=== PATIENT | male | born 1950 | race Caucasian/White ===

== ENCOUNTER 2017-05-30 07:19 | Inpatient (IN) ==
[2017-05-30] MEDS ORDERED: Lidocaine -MPF 1% 2 ML VIAL ID ONE (07:42)
[2017-05-30] MEDS ORDERED: CeFAZolin Syr 2,000MG/20 ML 2,000 MG/20 ML SYRINGE IVPB ONE (07:42)
[2017-05-30] MEDS ORDERED: Vancomycin 1,500 MG in D5% in Water 250 ML IVPB ONE ×3 (07:42→20:00)
[2017-05-30] MEDS ORDERED: Albuterol 2.5 MG/3 ML NEBULIZER ONE (07:46)
[2017-05-30] MEDS ORDERED: *HR* HYDROmorphone (PF) 1 MG/ML SYRINGE IVP PRN (07:50)
[2017-05-30] MEDS ORDERED: Famotidine 20 MG/2 ML VIAL IVP ONE (07:50)
[2017-05-30] MEDS ORDERED: *HR* Promethazine 25 MG/ML VIAL IVP PRN (07:50)
[2017-05-30] MEDS ORDERED: *HR* Labetalol 20 MG/4 ML SYRINGE IVP PRN ×3 (07:50→13:53)
[2017-05-30] MEDS ORDERED: Acetaminophen IV 1,000 MG/100 ML INFUS..BTL IVPB ONE (07:53)
[2017-05-30] MEDS: Ringers Solution, Lactated 1,000 ML IVC SCH ×2 (07:55→13:02)
[2017-05-30] MEDS: Albuterol 2.5 MG/3 ML NEBULIZER IH ONE ×2 (07:56→15:37)
--- NOTE | 2017-05-30 07:56 | Anesthesia Evaluation PreOp ---
Date of Encounter: 05/30/17 Time of Encounter: 07:54 - Past History Planned Operation: LLE graft thrombectomy Cardiac History: HTN (maintained on Lisinopril, Hctz), Hyperlipidemia ( maintained on Crestor), Other (PVDz s/p R-BKA, Fem-Pop Bypass now with popliteal graft occlusion. Maintained on Plavix, Pentoxifylline. 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: Other (Peripheral Neuropathy maintained on Amitryptyline) Other Medical History: Renal, Diabetes Type II (maintained on Metformin), GERD ( maitnained on Omeprazole) Anesthesia History: No Prior Anesthetic Complications, Past Anesthesia (R-elbow , L-knee Fx, L-ankle ORIF, C-spine 2004, R-shoulder 2006, lower extremity Bypass x2 last in , RLE amputation, L-eye implant 02/2016) Alcohol Use: none Drug use: none Medications and Allergies Amitriptyline [Elavil] 75 mg PO HS 05/12/15 [History] Clopidogrel [Plavix] 75 mg PO DAILY 05/12/15 [History] Cyanocobalamin (Vitamin B-12) [Vitamin B12] 1,000 mcg PO DAILY 05/12/15 [History ] Hydrochlorothiazide 25 mg PO DAILY 05/12/15 [History] Lisinopril [Zestril] 40 mg PO DAILY 05/12/15 [History] Omeprazole [PriLOSEC] 20 mg PO DAILY 05/12/15 [History] Rosuvastatin [Crestor] 40 mg PO HS 05/12/15 [History] Pentoxifylline [TRENtal] 400 mg PO BID #0 06/26/15 [History] Metformin HCl [Glucophage] 1,000 mg PO BID #0 08/06/15 [Rx] 3 Allergy/AdvReac Type Severity Reaction Status Date / Time No Known Allergies Allergy Verified 05/30/17 07:57 - Meds/Allergy Pre-op Review Medications Reviewed: Yes Allergies Reviewed: Yes Beta Blockers on Current Med List: No Anesthesia Results - Labs Laboratory Tests 05/09/17 05/28/17 05/28/17 13:12 12:35 12:35 WBC 6.4 Hgb 12.7 L Hct 38.2 Plt Count 242 PT 11.5 INR 1.1 APTT 27.1 Sodium Potassium Chloride Carbon Dioxide BUN Creatinine POC Creatinine 1.00 Est GFR (Non-Af Amer) Glucose Est Mean Plasma Glucose Hemoglobin A1c 05/28/17 05/28/17 12:35 12:35 WBC Hgb Hct Plt Count PT INR APTT Sodium 138 Potassium 4.3 Chloride 104 Carbon Dioxide 24 BUN 18 Creatinine 0.92 POC Creatinine Est GFR (Non-Af Amer) > 60 Glucose 130 H Est Mean Plasma Glucose 134 Hemoglobin A1c 6.3 H Anesthesia Exam O2 Sat Height 1.78 m Height 1.78 m Weight 96.615 kg Weight 96.615 kg O2 Sat by Pulse Oximetry 98 Vital Signs Temp Pulse Resp BP Pulse Ox 97.9 F 109 18 127/100 98 05/30/17 07:38 05/30/17 07:38 05/30/17 07:38 05/30/17 07:38 05/30/17 07:38 Height: 5'10" Weight: 213# BMI = 30.6 NPO (# of Hours): MNOc - HEENT Pupil (Motor): Pupils equal, EOMI Mallampati: II Teeth: Edentulous Denture Type: Upper: Complete, Lower: Complete Oral Opening: Greater than 3 - NOUGAT CUTTER MACHINE LOC: Oriented NOUGAT CUTTER MACHINE Motor: Normal RUE, Normal LUE, Normal RLE, Normal LLE, Normal Face NOUGAT CUTTER MACHINE Sensory: Normal: RUE, LUE, RLE, LLE, Face - Cardiac Rhythm: Regular Murmur: None - Pulmonary Breath Sounds: bilateral Clear Respiratory Effort: Symmetrical Anesthesia Assess/Plan ASA Score: 3 (HTN, Chol, PVDz, DM) Anes Supervising Prov Stmt: Pt seen/evaluated, R&B discussed, questions answered and consent obtained. Ashkan Cooley MD
[2017-05-30] MEDS ORDERED: Levalbuterol Neb 1.25 MG/3 ML IH ONE (08:00)
[2017-05-30] MEDS ORDERED: Gabapentin 300 MG CAPSULE PO STA (08:13)
[2017-05-30] MEDS ORDERED: Heparin 1,000 UNITS/500 mL NS 500 ML ONE (08:42)
--- NOTE | 2017-05-30 08:51 | History & Physical Report ---
Date of Encounter: 05/30/17 Time of Encounter: 08:48 24 Hour HP Update - Instructions Instructions: If the History and Physical is less than 30 days old and was completed prior to A.M. admission and or procedure and has NOT been updated on calendar day of procedure please complete this update prior to performing procedure. - Update Patient reports changes in Medical Condition: No Changes in examination, assessment, or condition: No Changes in Medication: No Preop tests/diagnostics Reviewed: Yes Surgery Remains Indicated: Yes Consent for Planned Operative Procedure(s) Verified: Yes - Pre-Operative Checklist Preoperative Checklist Indicated: Yes Prophylactic Antibiotic Ordered: Yes (Vanomycin due to risk of MRSA) Home Medications Include Beta Margarita: No Beta Margarita Taken Today (Day of Surgery): No Beta Margarita Taken Yesterday (Day Prior to Surgery): No Is VTE Prophylaxis Indicated?: Yes
[2017-05-30] MEDS ORDERED: Heparin 1,000 UNITS/500 mL NS 1,500 ML ONE (09:01)
[2017-05-30] MEDS ORDERED: Lidocaine -MPF 2% 2 ML VIAL ONE ×2 (09:10→09:25)
[2017-05-30] MEDS ORDERED: *HR* Rocuronium Bromide 50 MG/5 ML VIAL ONE (09:12)
[2017-05-30] MEDS ORDERED: EPHEDrine 50 MG/ML VIAL ONE (09:12)
[2017-05-30] MEDS ORDERED: *HR* Succinylcholine 200 MG/10 ML VIAL IVP ONE (09:12)
[2017-05-30] MEDS ORDERED: *HR* FentaNYL (PF) 100 MCG/2 ML VIAL ONE ×2 (09:12→10:09)
[2017-05-30] MEDS ORDERED: Propofol 500 MG/50 ML INFUS..BTL ONE (09:13)
[2017-05-30] MEDS ORDERED: *HR* Heparin 5,000 UNIT/ML VIAL ONE (10:37)
[2017-05-30] MEDS ORDERED: *HR* Phenylephrine 10 MG/ML VIAL ONE (10:42)
[2017-05-30] MEDS ORDERED: *HR* Vasopressin 20 UNIT/ML VIAL ONE (10:49)
[2017-05-30] MEDS ORDERED: Albumin Human 5% 25.0 GM/500 ML VIAL ONE (10:49)
--- NOTE | 2017-05-30 11:40 | Operative Note ---
Date of procedure: 05/30/17 Pre-op diagnosis: Peripheral vascular disease with rest pain, acute on chronic limb ischemia Post-op diagnosis: same Procedure: 1. Left femoral to popliteal artery bypass graft thrombectomy with hemashield patch revision of the proximal graft. 2. Left common and deep femoral endarterectomy. Complications: None Anesthesia: YANCI Surgeon: Parag Fair Estimated blood loss (cc): 100 Specimen: Left lower extremity thrombus and plaque Condition: stable Disposition: PACU Procedure in Detail: Indications: The patient is a 67 year old male with a long history of hypertension, diabetes, chronic anemia, hyperlipidemia and peripheral vascular disease. The patient has previously undergone a right below knee amputation for severe peripheral vascular disease. The patient has previously undergone a left femoral to popliteal artery bypass and presented to clinic with complaints of left lower extremity claudication. He was found to have an occluded left femoral to popliteal artery bypass. During the course of his workup, he developed progressive rest pain and revascualrization was recommended to reduce his risk of limb loss. Procedure: The patient was identified in the preoperative area. The risks, benefits and alternatives were discussed and all questions were answered. The patient was taken to the operating room and placed in the supine position on the operating room table. After the induction of general endotracheal anesthesia, the patient was cleaned and draped in the normal sterile fashion. An oblique incision was made sharply through his previous left groin scar overlying the femoral vessels. Hemostasis was obtained with electrocautery. Through a process of blunt, sharp and electrocautery dissection, the distal external iliac, deep and superficial femoral arteries were dissected and surrounded with vessel loops. The graft was also dissected and surrounded with vessel loops. The patient received a 5000 unit bolus of heparin. After waiting adequate time or the heparin to circulate, the vessels were occluded with the vessel loops. A longitudinal arteriotomy was made through the graft anastamosis and extended proximally into the [place] artery. No flow was noted on release of the loops. A 4 mongolian mihaela catheter was passed into the aorta and inflated. It was withdrawn and some acute thrombus and chronic embolic material was retrieved. This was sent to pathology. Brisk pulsatile flow was noted at this time. Additional passes of the catheter resulted in no additional thrombus or embolus proximally. A 4 mongolian mihaela catheter was passed distally and thrombus was retrieved from the deep femoral artery. Minimal retrograde flow was then noted from the deep femoral artery. A 4 mongolian mihaela catheter was passed distally through the graft and into the distal popliteal artery. Thrombus was retrieved on the first pass. Additional passes resulted in no additional thrombus. Retrograde flow as noted through the graft. The vessels and graft were flushed with heparin. Intimal hyperplasia was noted to be present along the anastamosis. Using a dental freer, an endarectomy was performed along the common femoral artery and extended into the deep femoral artery. Upon excision of the deep femoral plaque , brisk retrograde flow was noted through the deep femoral artery. The graft was also noted to be kinked along the anterior wall. This resulted in significant stenosis at the proximal graft. The graftotomy was extended through the kinke area and a hemasield patch was cut to fit the defect. The A hemashield patch was then sutured to the defect with a running 6-0 prolene. Prior to completing the closure, the vessels were flushed, the graft was flushed and heparin was infused into the lumen. Flow was restored in the [place] vessels and graft. Polyphasic signals were identified in the posterior tibial and dorsalis pedis arteries below the ankle. The wound was irrigated with antibiotic containing saline. Hemostasis was obtained with electrocautery. The wound was reapproximated with 2-0 and 3-0 vicryl. Skin was reapproximated with 3-0 Monocryl. Sterile dressings were applied. The patient was extubated and taken to the recover room in stable condition.
[2017-05-30] MEDS ORDERED: Ondansetron 4 MG/2 ML VIAL IVP PRN ×2 (11:41→13:53)
[2017-05-30] MEDS ORDERED: Acetaminophen 325 MG TABLET PO PRN ×2 (11:41→13:53)
[2017-05-30] MEDS ORDERED: *HR* OxyCODONE Immed Rel 5 MG TABLET PO PRN (11:41)
[2017-05-30] MEDS ORDERED: *HR* HYDROcodone/Acet 5/325 mg TABLET PO PRN ×2 (11:41→13:53)
[2017-05-30] MEDS ORDERED: *HR* Morphine 2 MG/ML SYRINGE IVP PRN ×2 (11:41→13:53)
[2017-05-30] MEDS ORDERED: Naloxone 0.4 MG/ML INJ IVP PRN ×2 (11:41→13:53)
[2017-05-30] MEDS ORDERED: *HR* Metoprolol 5 MG/5 ML VIAL IVP SCH (12:00)
[2017-05-30] MEDS ORDERED: Ketorolac 30 MG/ML VIAL ONE (12:42)
[2017-05-30] MEDS ORDERED: Ketorolac 30 MG/ML VIAL IM ONE (12:46)
--- NOTE | 2017-05-30 13:32 | Anesthesia Evaluation Post Op ---
Date of Encounter: 05/30/17 Time of Encounter: 13:31 - Vital Signs Vital Signs: Vital Signs/O2 Sat/Glucose, Most Current Temp Pulse Resp BP Pulse Ox 05/30/17 13:24 98.3 F 87 12 98 05/30/17 13:16 98.3 F 88 11 93/57 99 05/30/17 13:06 85 16 93/63 98 05/30/17 12:56 85 14 79/50 96 05/30/17 12:46 97.3 F L 71 14 76/48 99 05/30/17 12:36 67 16 95/53 97 05/30/17 12:26 69 16 78/52 98 05/30/17 12:16 97.5 F L 76 16 100/56 96 05/30/17 12:06 84 14 113/61 95 05/30/17 11:56 85 12 113/77 98 05/30/17 11:46 97.0 F L 101 16 122/63 98 - Lungs Lungs: Clear Ascult./Percussion - Airway Airway: Non-obstructed - Cardiovascular Regular Rate - Mental Status Mental Status: Alert & Oriented, Answers Appropriately - Pain Pain Scale: 2 - Nausea Vomiting Nausea Vomiting: Not Present - Hydration Hydration: Tolerates oral liquids - Discharge PostOp Status: Transfer Patient to floor (good peripheral pulses, VSS, ok to transfer to floor)
[2017-05-30] MEDS ORDERED: *HR* Dextrose 50 % in Water (Syg) 50 ML SYRINGE IVP PRN (13:53)
[2017-05-30] MEDS ORDERED: D5% in Water 1,000 ML IVC PRN (13:53)
[2017-05-30] MEDS ORDERED: Dextrose Gel 15 GM PO PRN ×2 (13:53)
[2017-05-30] MEDS: *HR* OxyCODONE Immed Rel 5 MG TABLET PO PRN ×2 (14:39→20:33)
[2017-05-30] MEDS ORDERED: ceFAZolin 2,000 MG in D5% in Water 100 ML IVPB SCH (15:30)
[2017-05-30] MEDS: Insulin LISPRO 300 UNITS/3 ML VIAL SQ SCH (17:21)
[2017-05-30] MEDS: ceFAZolin 2,000 MG in D5% in Water 100 ML IVPB SCH (17:21)
[2017-05-30] MEDS: *HR* Metoprolol 5 MG/5 ML VIAL IVP SCH ×2 (17:21→23:40)
[2017-05-30] MEDS ORDERED: Insulin LISPRO 300 UNITS/3 ML VIAL SQ SCH (21:00)
[2017-05-31] MEDS: ceFAZolin 2,000 MG in D5% in Water 100 ML IVPB SCH (01:23)
[2017-05-31 03:51] LABS: Basophils % 0.5 %; Eosinophils # 0.2 K/mcL (0.0-0.6); Eosinophils % 2.9 %; Hematocrit 29.5 % (37.5-50.1); Immature Granulocytes % 0.4 % (0-4); Lymphocytes # 2.1 K/mcL (0.6-4.6); Lymphocytes % 25.3 %; Mean Corpuscular HGB Conc 33.9 g/dL (31.6-35.5); Mean Corpuscular Hemoglobin 29.3 pg (28.0-33.3); Mean Corpuscular Volume 86.5 fL (83.0-100.0); Mean Platelet Volume 10.4 fL (9.4-12.4); Monocytes # 0.7 K/mcL (0.0-1.3); Monocytes % 8.2 %; Neutrophils # 5.2 K/mcL (1.6-8.9); Platelet Count 182 K/mcL (140-400); Red Blood Count 3.41 M/mcL (4.19-5.50); Red Cell Distribution Width 13.4 % (11.5-14.5); Segmented Neutrophils % 62.7 %
[2017-05-31 04:12] LABS: BUN/Creatinine Ratio 11 (6-26); Blood Urea Nitrogen 11 mg/dL (8-26); Calcium 8.7 mg/dL (8.6-10.8); Carbon Dioxide 22 mEq/L (19-29); Chloride 103 mEq/L (98-109); Glucose 125 mg/dL (70-99); Osmolality,Calculated 283 (280-300); Sodium 136 mEq/L (136-145); eGFR For African Americans > 60 (> 60); eGFR For Non-African Americans > 60 (> 60)
[2017-05-31] MEDS ORDERED: *HR* Heparin 5,000 UNIT/ML VIAL SQ SCH ×2 (06:00)
[2017-05-31] MEDS: *HR* OxyCODONE Immed Rel 5 MG TABLET PO PRN (06:12)
[2017-05-31] MEDS: *HR* Metoprolol 5 MG/5 ML VIAL IVP SCH (06:13)
[2017-05-31 07:30] VITALS: BP 109/67
--- NOTE | 2017-05-31 07:37 | Discharge Summary ---
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 He is able to ambulate. His wounds are healing. He has palpable pedal pulses and his compartments are soft. He will be discharged today. (2) Essential (primary) hypertension Priority: Secondary Status: Chronic Comments: The patient was counseled regarding atherosclerotic risk factor reduction. (3) Mixed hyperlipidemia Priority: Secondary Status: Chronic (4) COPD (chronic obstructive pulmonary disease) Priority: Secondary Status: Chronic Qualifiers: COPD type: emphysema Emphysema type: panlobular Qualified Code(s): J43.1 - Panlobular emphysema (5) Diabetes mellitus Priority: Secondary Status: Chronic Qualifiers: Diabetes mellitus type: type 2 Diabetes mellitus complication status: with circulatory complication Diabetes mellitus complication detail: with peripheral angiopathy without gangrene Diabetes mellitus intermediate card tender insulin use : without intermediate card tender use Qualified Code(s): E11.51 - Type 2 diabetes mellitus with diabetic peripheral angiopathy without gangrene (6) Chronic anemia Priority: Secondary Status: Chronic Comments: The patient has chronic anemia with acute expected postoperative blood loss anemia. He is hemodynamically stable without evidence of ongoing blood loss. - Discharge Medications Prescriptions: OxyCODONE/APAP 5/325 [Percocet 5/325 MG] 1 each PO Q6HR PRN #25 tablet PRN Reason: POSTOPERATIVE PAIN Home Medications: Amitriptyline [Elavil] 75 mg PO HS 05/12/15 [History] Clopidogrel [Plavix] 75 mg PO DAILY 05/12/15 [History] Cyanocobalamin (Vitamin B-12) [Vitamin B12] 1,000 mcg PO DAILY 05/12/15 [History ] Hydrochlorothiazide 25 mg PO DAILY 05/12/15 [History] Lisinopril [Zestril] 40 mg PO DAILY 05/12/15 [History] Omeprazole [PriLOSEC] 20 mg PO DAILY 05/12/15 [History] Rosuvastatin [Crestor] 40 mg PO HS 05/12/15 [History] Pentoxifylline [TRENtal] 400 mg PO BID #0 06/26/15 [History] Metformin HCl [Glucophage] 1,000 mg PO BID #0 08/06/15 [Rx] OxyCODONE/APAP 5/325 [Percocet 5/325 MG] 1 each PO Q6HR PRN #25 tablet 05/31/17 [Rx] Allergies/Adverse Reactions: 3 Allergy/AdvReac Type Severity Reaction Status Date / Time No Known Allergies Allergy Verified 05/30/17 07:57 Date of admission: 05/30/17 13:46 Primary care physician: Demetrius Stewart MD Procedure(s) Performed: Left lower extremity thrombectomy with graft revision, left lower extremity endarterectomy. Discharging clinician: Parag Fair Anticipated date of discharge: 05/31/17 - Patient Status Disposition: Home, Self-Care Condition: Good Functional capacity at discharge: independent ambulation Overall status at discharge: patient is back to baseline - Discharge Instructions Instructions: Oxycodone/Acetaminophen (By mouth), Peripheral Vascular Disorders (DC) Follow Up With: Sylvia Brantley CNP [Advanced Practice Nurse] - 06/06/17 11:00 am Parag Fair MD [Partnered Physician] - 06/26/17 1:10 pm Additional Instructions: May remove bandage and shower 06/01/17. Wash wound gently and pat to dry. Apply dry gauze to wound daily for 7 days. No tub baths or swimming until 06/26/17. Call Dr. Fair at [phone] with questions or concerns. - Diet and Activity Activity: increase activity as tolerated Diet: advance to your usual diet - Hospital Course Hospital course: Mr. Ramirez is a 67 year old male with a history of hypertension, hyperlipidemia, COPD, diabetes, chronic anemia and severe peripheral vascular disease. He initially was found to have disabling claudication, but subsequently developed rest pain secondary to chronic peripheral vascular and acute limb ischemia due to a left femoral to popliteal artery bypass graft occlusion. The patient has already had a right below knee amputation. He was taken to the operating room on 05/30/17 where he underwent a left femoral to popliteal artery graft thrombectomy with revision as well as a left femoral endarterectomy. Postoperatively he was transeferred to the floor. He received intravenous perioperative beta blockers, intravenous perioperative antibiotics for prophylaxis. He received supplemental oxygen. He received subcutaneous heparin for anticoagulation. He required intravenous narcotics for pain relief overnight. His postoperative vascular status was assesed regularly to confrim graft patency. On postoperative day one the patient was noted to have a warm foot with palpable pedal pulses. His compartments were soft. He had no signs or symptoms of compartment syndrome. He has chronic anemia and his postoperative hemoglobin was stable. He remained hemodynamically stable without evidence of ongoing blood loss. On postoperative day one his pain was able to be controlled with oral analgesics. He was able to ambulate with his prosthesis. He was discharged in stable condition without complications. - Time Spent with Patient Total time spent providing and/or coordinating discharge services: Exam Vital Signs, Last 4 Hours Temp Pulse Resp BP Pulse Ox 05/31/17 07:28 98.4 F 87 16 109/67 94 General: Present: Conversant, No Apparent Distress HEENT: Present: Pupils equal Neck: Absent: JVD Cardiac: Present: Reg Rate and Rhythm, Normal S1 and S2 Lungs: Present: Normal Breath Sounds, No Wheeze, Rales, Rhonchi Neuro: Present: Alert and responsive, No focal deficits noted, Motor nerves grossly intact, Sensory nerves grossly intact Abdomen: Present: Soft, Non-tender Vascular: Present: Normal capillary refill, Pulse, normal, Surgical incisions ( clean and dry without hematoma). Absent: Cyanosis, Edema Skin: Present: No rashes noted on visualized skin Musculoskeletal: Present: No Chest Wall Tenderness - VTE Documentation of Mechanical Device: Intermittent pneumatic compression device
[2017-05-31] MEDS: Insulin LISPRO 300 UNITS/3 ML VIAL SQ SCH (07:46)
[2017-05-31] MEDS ORDERED: hydroCHLOROthiazide 25 MG TABLET PO SCH (09:00)
[2017-05-31] MEDS ORDERED: Lisinopril 20 MG TABLET PO SCH (09:00)
[2017-05-31] MEDS ORDERED: Cyanocobalamin (B-12) 1,000 MCG TABLET PO SCH (09:00)
[2017-06-01] MEDS ORDERED: *HR* Metformin 500 MG TABLET PO SCH (09:00)
== END 2017-05-31 10:08 | disposition home or self-care (01) | DRG 254 ==
LOC: SAMDAY 07:19 → 2NNU 13:46
PROVIDERS: ADMIT Surgery; ATTEND Surgery

== ENCOUNTER 2017-10-04 18:34 | Inpatient (IN) ==
[2017-10-04] MEDS: 0.9 % Sodium Chloride 1,000 ML IVC SCH (21:02)
[2017-10-04] MEDS ORDERED: Naloxone 0.4 MG/ML INJ IVP PRN (21:03)
[2017-10-04] MEDS ORDERED: Dextrose Gel 15 GM/37.5 ML TUBE PO PRN ×2 (21:05)
[2017-10-04] MEDS ORDERED: D5% in Water 1,000 ML IVC PRN (21:05)
[2017-10-04] MEDS ORDERED: *HR* Dextrose 50 % in Water (Syg) 50 ML SYRINGE IVP PRN (21:05)
--- NOTE | 2017-10-04 21:09 | Internal Med History&Physical ---
Date of Encounter: 10/04/17 Time of Encounter: 21:00 Assessment and Plan (1) Acute renal failure Current visit: Yes Status: Suspected Patient with acute renal failure. Creatinine normal at baseline. Currently 8.69. Likely prerenal due to dehydration and volume loss. We will treat with IV fluids. Follow renal function closely. High risk for complications. We will obtain renal ultrasound. Urinalysis. Consult nephrology if renal function does not improve. Qualifiers: Acute renal failure type: with acute tubular necrosis Qualified Code(s): N17.0 - Acute kidney failure with tubular necrosis (2) Gastroenteritis Current visit: Yes Status: Acute Most likely viral gastroenteritis. Treat symptomatically. IV hydration. Zofran for nausea and vomiting. (3) Diabetes mellitus Current visit: Yes Status: Chronic Monitor blood sugars closely. Diabetic diet. Sliding scale insulin coverage. Qualifiers: Diabetes mellitus type: type 2 Diabetes mellitus complication status: with circulatory complication Diabetes mellitus complication detail: with peripheral angiopathy without gangrene Diabetes mellitus [facility] insulin use : without terminal make up operator use Qualified Code(s): E11.51 - Type 2 diabetes mellitus with diabetic peripheral angiopathy without gangrene (4) Essential (primary) hypertension Current visit: Yes Status: Chronic Will hold lisinopril and hydrochlorothiazide due to acute kidney injury. Allow permissive hypertension for now. (5) Mixed hyperlipidemia Current visit: Yes Status: Chronic Continue Crestor. (6) Peripheral vascular disease with claudication Current visit: Yes Status: Chronic Continue Plavix and pentoxifylline. (7) DVT prophylaxis Current visit: Yes Status: Acute Continue heparin Internal Medicine - H&P: HPI Chief complaint: Diarrhea, nausea/ vomiting Admitted From: Emergency Dept Plans for Post Hospital Care: Home History of present illness: Mr. Ramirez is a 67 year old male patient with history of peripheral vascular disease, diabetes, hypertension who presented to the ER with complaints of nausea and vomiting and diarrhea. Ongoing since 1 week. No improvement in symptoms. Known sick contacts with similar complaints. Denies any abdominal pain. Has noticed decreased urine output. No dysuria or hematuria. No fever or chills or night sweats. No hematemesis, hematochezia or melena. Past Med Surg Social Fam HX - Past Medical History Attestation: Yes The following information was validated with the patient. Source: patient Medical history: COPD, diabetes, GERD, hyperlipidemia, hypertension, peripheral artery disease, renal disease Psychiatric history: no psych history - Past Surgical History Surgical History: LE Bypass, LE stent(s), orthopedic, other, vascular surgery - Social History Smoking Status: Former smoker Smokeless Tobacco Status: No Alcohol use: none Drug use: none - Family History Son Adopted: No Family Member Ethnicity: Non- Living Status: Still Living Hx Family Cardiac Disorders: No Hx Family Respiratory Disorders: No Hx Family Cancer: No Hx Family GI Disorders: No Hx Family Endocrine Disorder: No Hx Family Neuromuscular Disorders: No Hx Family Neurologic Disorders: No Hx Family HEENT Disorders: No Hx Family Autoimmune Disorders: No Father Adopted: No Family Member Ethnicity: Non- Living Status: Hx Family Cardiac Disorders: Yes Hx Family Respiratory Disorders: No Hx Family Cancer: Yes Hx Family GI Disorders: Yes Hx Family Endocrine Disorder: Yes Hx Family Neuromuscular Disorders: No Hx Family Neurologic Disorders: Yes Hx Family HEENT Disorders: No Hx Family Autoimmune Disorders: No Internal Medicine - H&P: Meds Amitriptyline [Elavil] 75 mg PO HS 05/12/15 [History] Clopidogrel [Plavix] 75 mg PO DAILY 05/12/15 [History] Cyanocobalamin (Vitamin B-12) [Vitamin B12] 1,000 mcg PO DAILY 05/12/15 [History ] Hydrochlorothiazide 25 mg PO DAILY 05/12/15 [History] Lisinopril [Zestril] 40 mg PO DAILY 05/12/15 [History] Omeprazole [PriLOSEC] 20 mg PO DAILY 05/12/15 [History] Rosuvastatin [Crestor] 40 mg PO HS 05/12/15 [History] Pentoxifylline [TRENtal] 400 mg PO BID #0 06/26/15 [History] Metformin HCl [Glucophage] 1,000 mg PO BID #0 08/06/15 [Rx] Tramadol HCl [Ultram] 50 mg PO QID PRN 10/04/17 [History] 3 Allergy/AdvReac Type Severity Reaction Status Date / Time No Known Allergies Allergy Verified 10/04/17 16:11 All Systems PM: A 10-system review of systems was performed and is negative for pertinent findings except as documented above in the HPI. - Constitutional Constitutional: no chills, no fever(s), no night sweats - EENT Eyes: no change in vision, no discharge, no pain, no photophobia Ears: no ear discharge, no ear pain, no tinnitus Nose, mouth and throat: no dysphagia, no nasal discharge, no neck pain, no sore throat - Cardiovascular Cardiovascular ROS IM: no chest pain, no diaphoresis, no dyspnea, no lightheadedness, no palpitations, no syncope - Respiratory Respiratory: no cough, no dyspnea, no wheezing, no excessive phlegm production - Gastrointestinal Gastrointestinal: diarrhea, nausea, vomiting, no abdominal pain, no hematemesis , no hematochezia, no melena - Musculoskeletal Musculoskeletal ROS IM: no numbness, no tingling - Integumentary Integumentary IM: no rash, no unusual bruising - Neurological Neurological ROS: no confusion, no convulsions, no focal weakness, no numbness, no tingling, no tremor(s) - Hematologic/Lymphatic Hematologic/Lymphatic: no easy bruising - Constitutional Vitals: Temp Pulse Resp BP Pulse Ox 97.5 F L 113 20 131/105 98 10/04/17 19:56 10/04/17 19:56 10/04/17 19:56 10/04/17 19:56 10/04/17 19:56 General appearance: Present: cooperative, mild distress, A&O X 3, pleasant, answers questions appropriately - Neck Neck exam general surgery: Present: supple, trachea midline. Absent: lymphadenopathy - Respiratory Respiratory exam: Present: CTAB. Absent: accessory muscle use, rales, rhonchi, wheezes - Cardiovascular Cardiovascular exam: Present: RRR, +S1, +S2. Absent: diastolic murmur, gallop, rubs, systolic murmur - GI/Abdominal GI/Abdominal exam: Present: normal bowel sounds, soft, no peritoneal signs. Absent: distended, tenderness - Extremities Exam Extremities exam: Present: warm, radial pulses palpable and symmetrical. Absent : calf tenderness, cyanotic, pedal edema - Neurological Exam Neurological exam: Present: alert, CN II-XII intact, oriented X3, no focal deficits. Absent: facial droop, speech deficit - Skin Skin exam: Present: dry, intact Internal Med - H&P Results - Labs Labs: WBC 14.4, sodium 131, CO2 13, BUN 103, creatinine 8.69
[2017-10-04] MEDS ORDERED: Ondansetron 4 MG/2 ML VIAL IVP PRN (21:15)
[2017-10-05] MEDS: traMADol 50 MG TABLET PO PRN ×3 (00:22→21:37)
[2017-10-05] MEDS: 0.9 % Sodium Chloride 1,000 ML IVC SCH ×3 (03:57→19:29)
[2017-10-05] MEDS: Melatonin 3 MG TABLET PO PRN ×2 (03:57→21:32)
[2017-10-05 04:07] LABS: Basophils % 0.2 %; Eosinophils % 16.3 %; Hematocrit 33.3 % (37.5-50.1); Hemoglobin 11.4 g/dL (12.9-16.9); Immature Granulocytes % 1.3 % (0-4); Lymphocytes # 2.2 K/mcL (0.6-4.6); Lymphocytes % 18.5 %; Mean Corpuscular HGB Conc 34.2 g/dL (31.6-35.5); Mean Corpuscular Volume 81.8 fL (83.0-100.0); Mean Platelet Volume 10.8 fL (9.4-12.4); Monocytes # 1.1 K/mcL (0.0-1.3); Monocytes % 9.3 %; Neutrophils # 6.6 K/mcL (1.6-8.9); Platelet Count 184 K/mcL (140-400); Red Blood Count 4.07 M/mcL (4.19-5.50); Red Cell Distribution Width 14.3 % (11.5-14.5); Segmented Neutrophils % 54.4 %
[2017-10-05 04:15] LABS: Calcium 7.2 mg/dL (8.6-10.3); Potassium 3.8 mEq/L (3.5-5.1)
[2017-10-05] MEDS: *HR* Heparin 5,000 UNIT/ML VIAL SQ SCH ×2 (05:16→18:37)
[2017-10-05] MEDS: Acetaminophen 325 MG TABLET PO PRN ×3 (05:21→21:32)
[2017-10-05 07:34] LABS: C.difficile Toxin A/B by PCR Not detected (Not detect); Campylobacter by PCR Not detected (Not detect); Plesiomonas shigelloides PCR Not detected (Not detect)
[2017-10-05 07:35] LABS: Adenovirus F 40/41 PCR Not detected (Not detect); Astrovirus PCR Not detected (Not detect); Cryptosporidium by PCR Not detected (Not detect); Cyclospora cayetanensis PCR Not detected (Not detect); E. coli O157 by PCR Not detected (Not detect); Entamoeba histolytica PCR Not detected (Not detect); Enteroaggregative E.coli(EAEC) Not detected (Not detect); Enteropathogenic E.coli(EPEC) Not detected (Not detect); Enterotoxigenic E.coli (ETEC) Not detected (Not detect); Giardia lamblia PCR Not detected (Not detect); Norovirus GI/GII PCR Not detected (Not detect); Rotavirus A PCR Not detected (Not detect); Salmonella PCR Not detected (Not detect); Sapovirus PCR Not detected (Not detect); Shig/EnteroinvasiveE coli EIEC Not detected (Not detect); Shigalike tox-prod E coli STEC Not detected (Not detect); Vibrio PCR Not detected (Not detect); Vibrio cholerae PCR Not detected (Not detect); Yersinia enterocolitica PCR Not detected (Not detect)
[2017-10-05] MEDS: Insulin LISPRO 300 UNITS/3 ML VIAL SQ SCH ×4 (08:15→21:33)
--- NOTE | 2017-10-05 17:17 | Internal Med Progress Note ---
<Mir Joiner - Last Filed: 10/05/17 18:12> Date of Encounter: 10/05/17 Time of Encounter: 17:15 - Assessment and plan (1) Acute renal failure Current Visit: Yes Status: Acute Assessment and plan: Cr improving 8.69 -> 6.71 IV fluid hydration - 150mls/hr maintenance Plan: Renal US pending Continue to monitor kidney function Continue 150mls/hr NS fluids Holding home lisinopril and HCTZ Qualifiers: Acute renal failure type: unspecified Qualified Code(s): N17.9 - Acute kidney failure, unspecified (2) Gastroenteritis Current Visit: Yes Status: Acute Assessment and plan: Hydration as stated above. Patient had one BM today that was soft and liquid. Improving. Stool GI panel negative (3) DVT prophylaxis Current Visit: Yes Status: Acute Assessment and plan: heparin 5000 BID - Subjective Interval history: Patient is a 67-year-old male with a past medical history of COPD, CVA, diabetes , GERD, HLD, HTN, PAD, renal disease admitted to the hospital for gastroenteritis, dehydration and near syncope. Patient was having episodes of nausea, vomiting, and diarrhea for the past week. Known sick contacts with similar complaints. The patient was found to be hypotensive and tachycardic in urgent care and referred to the emergency department. The patients initial lab work showed acute renal failure with creatinine of 8.69. The patient was hydrated and given when necessary Zofran. Patients lab work in the ED showed a unremarkable CBC. After receiving 2 L of IV fluids and being on 150 ML's per hour maintenance fluid the patient's creatinine has improved to 6.71. He states that he feels his diarrhea is improving his only had one episode today and it was somewhat soft. - Constitutional Vitals: Temp Pulse Resp BP Pulse Ox 97.9 F 115 19 106/59 97 10/05/17 16:23 10/05/17 16:23 10/05/17 16:23 10/05/17 16:23 10/05/17 16:23 General appearance: Present: cooperative, mild distress, A&O X 3, pleasant, answers questions appropriately - Head Head exam: Present: atraumatic, normal inspection, normocephalic - Eye Eye exam: Present: normal appearance, PERRL - Neck Neck exam general surgery: Present: normal inspection - Respiratory Respiratory exam: Present: CTAB. Absent: rales, respiratory distress, wheezes - Cardiovascular Cardiovascular exam: Present: RRR, +S1, +S2, tachycardia - GI/Abdominal GI/Abdominal exam: Present: normal bowel sounds, soft, no peritoneal signs. Absent: tenderness - Extremities Exam Extremities exam: Present: normal capillary refill, normal inspection, warm. Absent: tenderness Additional comments: Patient has BKA of RLE. - Back Exam Back exam: Present: normal inspection - Neurological Exam Neurological exam: Present: alert, oriented X3, no focal deficits - Psychiatric Psychiatric exam: Present: normal affect, normal mood - Skin Skin exam: Present: intact, normal color, warm Internal Medicine: Result - Labs CBC & Chem 7: 10/05/17 03:11 10/05/17 03:11 Labs: Short CBC 10/05/17 Range/Units 03:11 WBC 12.1 H (4.3-11.1) K/mcL Hgb 11.4 L (12.9-16.9) g/dL Hct 33.3 L (37.5-50.1) % Plt Count 184 (140-400) K/mcL Neutrophils # 6.6 (1.6-8.9) K/mcL BMP 10/05/17 03:11 Sodium 135 L Potassium 3.8 Chloride 107 Carbon Dioxide 12 L BUN 103 H Creatinine 6.71 H Glucose 78 Calcium 7.2 L Consult Discharge Plan - Plan Referrals: Demetrius Stewart MD [Primary Care Provider] - 10/11/17 11:30 am <Jeff Robertson - Last Filed: 10/05/17 19:06> Date of Encounter: 10/05/17 - Constitutional Vitals: Temp Pulse Resp BP Pulse Ox 97.9 F 115 19 106/59 97 10/05/17 16:23 10/05/17 16:23 10/05/17 16:23 10/05/17 16:23 10/05/17 16:23 Internal Medicine: Result - Labs CBC & Chem 7: 10/05/17 03:11 10/05/17 03:11 Labs: Short CBC 10/05/17 Range/Units 03:11 WBC 12.1 H (4.3-11.1) K/mcL Hgb 11.4 L (12.9-16.9) g/dL Hct 33.3 L (37.5-50.1) % Plt Count 184 (140-400) K/mcL Neutrophils # 6.6 (1.6-8.9) K/mcL BMP 10/05/17 03:11 Sodium 135 L Potassium 3.8 Chloride 107 Carbon Dioxide 12 L BUN 103 H Creatinine 6.71 H Glucose 78 Calcium 7.2 L - Impressions Impressions Retroperitoneum Ultrasound 10/05/17 15:30 IMPRESSION: Unremarkable renal ultrasound. Large postvoid residual. D/ / Jean-Claude Barreto MD / Jean-Claude Barreto MD Interpreting Provider: Jean-Claude Barreto MD - Attending Attestation I examined this patient and my medical decision-making was reviewed with the Resident Physician. I agree with the documented findings, disposition and treatment plan as described except to the extent set forth below.
[2017-10-06] MEDS: 0.9 % Sodium Chloride 1,000 ML IVC SCH ×4 (02:26→23:09)
[2017-10-06 03:52] LABS: Basophils % 0.5 %; Eosinophils # 1.5 K/mcL (0.0-0.6); Eosinophils % 17.2 %; Hematocrit 30.9 % (37.5-50.1); Hemoglobin 10.6 g/dL (12.9-16.9); Immature Granulocytes % 2.3 % (0-4); Lymphocytes # 2.2 K/mcL (0.6-4.6); Lymphocytes % 26.3 %; Mean Corpuscular HGB Conc 34.3 g/dL (31.6-35.5); Mean Corpuscular Hemoglobin 27.8 pg (28.0-33.3); Mean Corpuscular Volume 81.1 fL (83.0-100.0); Monocytes # 0.8 K/mcL (0.0-1.3); Monocytes % 9.7 %; Neutrophils # 3.7 K/mcL (1.6-8.9); Platelet Count 155 K/mcL (140-400); Red Blood Count 3.81 M/mcL (4.19-5.50); Red Cell Distribution Width 14.6 % (11.5-14.5)
[2017-10-06 04:08] LABS: Magnesium 1.2 mg/dL (1.6-2.6); Potassium 3.7 mEq/L (3.5-5.1)
[2017-10-06] MEDS: *HR* Heparin 5,000 UNIT/ML VIAL SQ SCH ×2 (06:27→17:09)
[2017-10-06] MEDS: Insulin LISPRO 300 UNITS/3 ML VIAL SQ SCH ×4 (08:25→21:43)
--- NOTE | 2017-10-06 08:54 | Discharge Summary ---
<Mir Joiner - Last Filed: 10/06/17 08:52> Orders not resulted at time of discharge: Pending orders 10/05/17 17:31 Urinalysis reflex Microscopic [URIN] Stat Urine Creatinine 24 Hr [UCHEM] Stat Urine Urea Nitrogen 24 Hr [UCHEM] Stat Date of Encounter: 10/06/17 Time of Encounter: 08:52 - Discharge Diagnosis (2) Acute renal failure Priority: Primary Status: Resolved Qualifiers: Acute renal failure type: unspecified Qualified Code(s): N17.9 - Acute kidney failure, unspecified (3) Gastroenteritis Priority: Primary Status: Resolved (4) DVT prophylaxis Priority: Secondary Status: Acute Hospital course: Mr. Ramirez is a 67 year old male with a past medical history of COPD, CVA, diabetes, GERD, HLD, HTN, PAD, renal disease admitted to the hospital for gastroenteritis, dehydration and near syncope. Patient was having episodes of nausea, vomiting, and diarrhea for the past week. Known sick contacts with similar complaints. The patient was found to be hypotensive and tachycardic in urgent care and referred to the emergency department. The patients initial lab work showed acute renal failure with creatinine of 8.69. The patient was hydrated and given when necessary Zofran. Patients lab work in the ED showed a unremarkable CBC. Upon admission, the patient was continued on 150 ML's per hour of normal saline. The patient had good urine output. Today his creatinine has improved to 2.60. Patient states that is feeling back to his baseline. He states that his last episode of diarrhea was yesterday morning. He has not had any nausea or vomiting and not required any anti-emetic the past 24 hours. He feels he is ready to go home at this time. Patient does have a borderline tachycardia however upon review of his past visits since 2014 this is a normal heart rate for this patient. Discharge discussed with: patient Time spent discussing smoking cessation with patient: 3 to 10 minutes - Time Spent with Patient Total time spent providing and/or coordinating discharge services: - Discharge Medications Home Medications: Amitriptyline [Elavil] 75 mg PO HS 05/12/15 [History] Clopidogrel [Plavix] 75 mg PO DAILY 05/12/15 [History] Cyanocobalamin (Vitamin B-12) [Vitamin B12] 1,000 mcg PO DAILY 10/14/15 [History ] Hydrochlorothiazide 25 mg PO DAILY 05/12/15 [History] Lisinopril [Zestril] 40 mg PO DAILY 05/12/15 [History] Omeprazole [PriLOSEC] 20 mg PO DAILY 05/12/15 [History] Rosuvastatin [Crestor] 40 mg PO HS 05/12/15 [History] Pentoxifylline [TRENtal] 400 mg PO BID #0 06/26/15 [History] Metformin HCl [Glucophage] 1,000 mg PO BID #0 08/06/15 [Rx] Tramadol HCl [Ultram] 50 mg PO QID PRN 10/04/17 [History] Tizanidine HCl 4 mg PO TID PRN 10/05/17 [History] Allergies/Adverse Reactions: 3 Allergy/AdvReac Type Severity Reaction Status Date / Time No Known Allergies Allergy Verified 10/04/17 16:11 Date of admission: 10/04/17 21:03 Primary care physician: Demetrius Stewart MD Discharging clinician: Jeff Robertson Anticipated date of discharge: 10/06/17 - Constitutional Vitals: Temp Pulse Resp BP Pulse Ox 97.6 F 105 15 123/81 92 10/06/17 07:43 10/06/17 08:25 10/06/17 07:43 10/06/17 07:43 10/06/17 07:43 General appearance: Present: cooperative, mild distress, A&O X 3, pleasant, answers questions appropriately Exam: Patient is in no acute distress sitting up in bed eating his breakfast. - Head Head exam: Present: atraumatic, normal inspection, normocephalic - Eye Eye exam: Present: normal appearance, PERRL - Neck Neck exam general surgery: Present: normal inspection - Respiratory Respiratory exam: Present: CTAB. Absent: rales, respiratory distress, rhonchi, tachypnea - Cardiovascular Cardiovascular exam: Present: +S1, +S2, tachycardia - GI/Abdominal GI/Abdominal exam: Present: normal bowel sounds, soft, no peritoneal signs - Extremities Exam Extremities exam: Present: normal inspection, warm. 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 - Back Exam Back exam: Present: normal inspection - Neurological Exam Neurological exam: Present: alert, oriented X3, no focal deficits - Psychiatric Psychiatric exam: Present: normal affect, normal mood - Skin Skin exam: Present: intact, normal color, warm - Patient Status Disposition: Home, Self-Care Condition: Good Functional capacity at discharge: independent ambulation Overall status at discharge: patient is back to baseline - Discharge Instructions Follow Up With: Demetrius Stewart MD [Primary Care Provider] - 10/11/17 11:30 am Additional Instructions: 1. Please follow up your primary care physician, Dr. Stewart on 10/11/17 at 11 AM. 2. If at any time you experience any worsening or concerning symptoms such as fever, headache, nausea, vomiting, chest pain, shortness of breath, abdominal pain, diarrhea or any other concerning symptoms return to the nearest emergency department for further evaluation and treatment. - Diet and Activity Activity: resume usual activities as tolerated Diet: advance to your usual diet <Jeff Robertson - Last Filed: 10/06/17 17:35> Orders not resulted at time of discharge: Pending orders 10/06/17 10:52 EKG [ECG 12 lead ECG] [ECG] Stat 10/06/17 12:19 EV echocardiogram Routine 10/07/17 04:00 BMP [Basic Metabolic Panel] AM 0400 Complete Blood Count [HEME] AM 0400 Date of Encounter: 10/06/17 Hospital course: Mr. Ramirez is a 67 year old male - Time Spent with Patient Total time spent providing and/or coordinating discharge services: Date of admission: 10/04/17 21:03 Primary care physician: Demetrius Stewart MD Consults: 10/06/17 10:51 Consult to Cardiology [CONS] Routine Comment: Consulting Provider: Cardiology Geeta Reason for Consult: 4 Seconds complete heart block Call Completed: Yes - Constitutional Vitals: Temp Pulse Resp BP Pulse Ox 97.9 F 90 18 108/63 97 10/06/17 15:30 10/06/17 15:30 10/06/17 15:30 10/06/17 15:30 10/06/17 15:30 - Attending Attestation I examined this patient and my medical decision-making was reviewed with the Resident Physician. I agree with the documented findings, disposition and treatment plan as described except to the extent set forth below. Will observe 24 more hrs. at Card. request given 4 second pauses..hope to DC tomorrow.
--- NOTE | 2017-10-06 12:14 | Electrophysiology Consult Note ---
Date of Encounter: 10/06/17 Time of Encounter: 12:11 Assessment and Plan (1) AV block, 2nd degree Current Visit: Yes Status: Acute AV block likely secondary to vagal stimulation or sleep apnea based on finding of sinus slowing prior to and during AV block. Would assess for sleep apnea and check echo. Discussion w patient/family: The assessment and plan as outlined above was discussed with the patient and/or family members who expressed understanding and agreement. All questions were answered. Thank you for involving us in the care of your patient. Please call with any questions. History of Present Illness Consult date: 10/06/17 Requesting physician: Jeff Roberston Consult reason: AV block Chief complaint: Headache History of present illness: Mr. Ramirez is a 67 year old male admitted for gastroenteritis and ARF. He was noted to have bradycardia and pauses noted on tele this AM. He denies symptoms and believes he was asleep during the episode. He denies syncope or other cardiac complaint. Past Med Surg Social Fam HX - Past Medical History Medical history: COPD, diabetes, GERD, hyperlipidemia, hypertension, peripheral artery disease, renal disease Psychiatric history: no psych history - Past Surgical History Surgical History: LE Bypass, LE stent(s), orthopedic, other, vascular surgery - Social History Smoking Status: Former smoker Smokeless Tobacco Status: No Alcohol use: none Drug use: none - Family History Son Adopted: No Family Member Ethnicity: Non- Living Status: Still Living Hx Family Cardiac Disorders: No Hx Family Respiratory Disorders: No Hx Family Cancer: No Hx Family GI Disorders: No Hx Family Endocrine Disorder: No Hx Family Neuromuscular Disorders: No Hx Family Neurologic Disorders: No Hx Family HEENT Disorders: No Hx Family Autoimmune Disorders: No Father Adopted: No Family Member Ethnicity: Non- Living Status: Hx Family Cardiac Disorders: Yes Hx Family Respiratory Disorders: No Hx Family Cancer: Yes Hx Family GI Disorders: Yes Hx Family Endocrine Disorder: Yes Hx Family Neuromuscular Disorders: No Hx Family Neurologic Disorders: Yes Hx Family HEENT Disorders: No Hx Family Autoimmune Disorders: No Medications and Allergies Amitriptyline [Elavil] 75 mg PO HS 05/12/15 [History] Clopidogrel [Plavix] 75 mg PO DAILY 05/12/15 [History] Cyanocobalamin (Vitamin B-12) [Vitamin B12] 1,000 mcg PO DAILY 10/14/15 [History ] Hydrochlorothiazide 25 mg PO DAILY 05/12/15 [History] Lisinopril [Zestril] 40 mg PO DAILY 05/12/15 [History] Omeprazole [PriLOSEC] 20 mg PO DAILY 05/12/15 [History] Rosuvastatin [Crestor] 40 mg PO HS 05/12/15 [History] Pentoxifylline [TRENtal] 400 mg PO BID #0 06/26/15 [History] Metformin HCl [Glucophage] 1,000 mg PO BID #0 08/06/15 [Rx] Tramadol HCl [Ultram] 50 mg PO QID PRN 10/04/17 [History] Tizanidine HCl 4 mg PO TID PRN 10/05/17 [History] 3 Allergy/AdvReac Type Severity Reaction Status Date / Time No Known Allergies Allergy Verified 10/04/17 16:11 All Systems Review: The remainder of the systems were reviewed and are negative Physical Examination Vital Signs, Last 4 Hours Pulse 10/06/17 08:25 105 General: Conversant, No Apparent Distress HEENT: Atraumatic, Normocephaly, Mucus Membranes Moist Neck: No JVD, Normal carotid pulses Cardiac: Reg Rate and Rhythm, Normal S1 and S2, No Murmur Lungs: Normal Breath Sounds, No Wheeze, Rales, Rhonchi Neuro: Alert and responsive, No focal deficits noted Abdomen: Soft, Non-Tender Skin: No rashes noted on visualized skin Musculoskeletal: No Chest Wall Tenderness Extremities: No Clubbing, No Cyanosis, No Edema, Normal Pulses Results 10/06/17 03:24 10/06/17 03:24 Lab Results 10/06/17 10/06/17 03:24 03:24 WBC 8.4 Hgb 10.6 L Hct 30.9 L Plt Count 155 Sodium 140 Potassium 3.7 Chloride 114 H Carbon Dioxide 17 L BUN 69 H Creatinine 2.60 H Glucose 82 Calcium 8.0 L Magnesium 1.2 L - EKG Interpretation EKG results cardiology: sinus rhythm (no conduction disease), other (telemetry shows periods of sinus bradycardia with AV block, longest pause 4 seconds. Episodes of wenkebach also noted.) Consult Discharge Plan - Plan Additional Instructions: 1. Please follow up your primary care physician, Dr. Stewart on 10/11/17 at 11 AM. 2. If at any time you experience any worsening or concerning symptoms such as fever, headache, nausea, vomiting, chest pain, shortness of breath, abdominal pain, diarrhea or any other concerning symptoms return to the nearest emergency department for further evaluation and treatment. Referrals: Demetrius Stewart MD [Primary Care Provider] - 10/11/17 11:30 am
--- NOTE | 2017-10-06 12:31 | Electrocardiograph Report ---
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
--- NOTE | 2017-10-06 14:39 | Internal Med Progress Note ---
<Mir Joiner - Last Filed: 10/06/17 17:31> Date of Encounter: 10/06/17 Time of Encounter: 14:37 - Assessment and plan (1) AV block, 2nd degree Current Visit: Yes Status: Acute Assessment and plan: Most likely related the patient's sleep apnea since episodes have occurred when the patient is sleeping and he denies any symptoms. Recommended by cardiology to check an echo and keep the patient for additional 24 hours for observation on telemetry. Plan: Echo ordered. (2) Acute renal failure Current Visit: Yes Status: Resolved Assessment and plan: Cr improving 6.71 -> 2.60 IV fluid hydration complete Renal ultrasound was normal Plan: Patient's acute renal failure has improved encourage hydration by mouth. Plan for discharge, however had an abnormal rhythm. We will keep him an additional night Qualifiers: Acute renal failure type: unspecified Qualified Code(s): N17.9 - Acute kidney failure, unspecified (3) Gastroenteritis Current Visit: Yes Status: Resolved Assessment and plan: No further episodes of nausea, vomiting or diarrhea. Stool GI panel negative (4) DVT prophylaxis Current Visit: Yes Status: Acute Assessment and plan: heparin 5000 BID - Subjective Interval history: Patient is a 67-year-old male with a past medical history of COPD, CVA, diabetes , GERD, HLD, HTN, PAD, renal disease admitted to the hospital for gastroenteritis, dehydration and near syncope. Patient was found to be hydrated dehydrated due to multiple episodes of nausea, vomiting, and diarrhea that a been going on for the past week with a known recent sick contact. Patient had a negative stool panel. He received aggressive IV fluid rehydration 's due to acute kidney injury with a creatinine of of 8.0. Over the course of his stay the patient's creatinine improved to 2.0. Upon preparing to discharge the patient he had an abnormal rhythm while resting. There appeared to be a 4- 5 seconds timeframe of heart block in which she had P waves that were not followed by QRS waves. Cardiology was consult. They recommended a echocardiogram and telemetry for 24 hours with observation. Patient will no longer be discharged today potentially discharged tomorrow pending echo findings and observation. - Constitutional Vitals: Temp Pulse Resp BP Pulse Ox 98.2 F 95 18 112/64 95 10/06/17 11:57 10/06/17 11:57 10/06/17 11:57 10/06/17 11:57 10/06/17 14:18 General appearance: Present: cooperative, mild distress, A&O X 3, pleasant, answers questions appropriately Exam: CONSTITUTIONAL: Alert and oriented X3, well-nourished, well appearing, in no apparent distress HEAD: Normocephalic; atraumatic. EYES: PERRL, no scleral icterus. NOSE: The nose is normal in appearance without rhinorrhea RESP: Normal chest excursion with respiration; breath sounds clear and equal bilaterally; no wheezes, rhonchi, or rales CARD: Regular rhythm, without murmurs, rub or gallop ABD: Non-distended; non-tender, soft,without rigidity, rebound or guarding SKIN: Normal for age and race; warm and dry; no apparent lesions Internal Medicine: Result - Labs CBC & Chem 7: 10/06/17 03:24 10/06/17 03:24 Labs: Short CBC 10/06/17 Range/Units 03:24 WBC 8.4 (4.3-11.1) K/mcL Hgb 10.6 L (12.9-16.9) g/dL Hct 30.9 L (37.5-50.1) % Plt Count 155 (140-400) K/mcL Neutrophils # 3.7 (1.6-8.9) K/mcL BMP 10/06/17 03:24 Sodium 140 Potassium 3.7 Chloride 114 H Carbon Dioxide 17 L BUN 69 H Creatinine 2.60 H Glucose 82 Calcium 8.0 L - Impressions Impressions Retroperitoneum Ultrasound 10/05/17 15:30 IMPRESSION: Unremarkable renal ultrasound. Large postvoid residual. D/ / Jean-Claude Barreto MD / Jean-Claude Barreto MD Interpreting Provider: Jean-Claude Barreto MD Consult Discharge Plan - Plan Additional Instructions: 1. Please follow up your primary care physician, Dr. Stewart on 10/11/17 at 11 AM. 2. If at any time you experience any worsening or concerning symptoms such as fever, headache, nausea, vomiting, chest pain, shortness of breath, abdominal pain, diarrhea or any other concerning symptoms return to the nearest emergency department for further evaluation and treatment. Referrals: Demetrius Stewart MD [Primary Care Provider] - 10/11/17 11:30 am <Jeff Robertson - Last Filed: 10/06/17 17:42> Date of Encounter: 10/06/17 - Constitutional Vitals: Temp Pulse Resp BP Pulse Ox 97.9 F 90 18 108/63 97 10/06/17 15:30 10/06/17 15:30 10/06/17 15:30 10/06/17 15:30 10/06/17 15:30 Internal Medicine: Result - Labs CBC & Chem 7: 10/06/17 03:24 10/06/17 03:24 Labs: Short CBC 10/06/17 Range/Units 03:24 WBC 8.4 (4.3-11.1) K/mcL Hgb 10.6 L (12.9-16.9) g/dL Hct 30.9 L (37.5-50.1) % Plt Count 155 (140-400) K/mcL Neutrophils # 3.7 (1.6-8.9) K/mcL BMP 10/06/17 03:24 Sodium 140 Potassium 3.7 Chloride 114 H Carbon Dioxide 17 L BUN 69 H Creatinine 2.60 H Glucose 82 Calcium 8.0 L - Attending Attestation I examined this patient and my medical decision-making was reviewed with the Resident Physician. I agree with the documented findings, disposition and treatment plan as described except to the extent set forth below.
[2017-10-06] MEDS: Acetaminophen 325 MG TABLET PO PRN (21:42)
[2017-10-06] MEDS: traMADol 50 MG TABLET PO PRN (21:42)
[2017-10-06] MEDS: Melatonin 3 MG TABLET PO PRN (21:42)
[2017-10-07] MEDS: *HR* Heparin 5,000 UNIT/ML VIAL SQ SCH (06:19)
[2017-10-07] MEDS: 0.9 % Sodium Chloride 1,000 ML IVC SCH (06:20)
[2017-10-07 06:55] LABS: Basophils # 0.1 K/mcL (0.0-0.2); Basophils % 0.6 %; Eosinophils # 1.3 K/mcL (0.0-0.6); Eosinophils % 15.8 %; Hematocrit 31.3 % (37.5-50.1); Hemoglobin 10.5 g/dL (12.9-16.9); Immature Granulocytes % 4.3 % (0-4); Lymphocytes # 2.3 K/mcL (0.6-4.6); Lymphocytes % 29.1 %; Mean Corpuscular HGB Conc 33.5 g/dL (31.6-35.5); Mean Corpuscular Hemoglobin 27.7 pg (28.0-33.3); Mean Corpuscular Volume 82.6 fL (83.0-100.0); Mean Platelet Volume 10.6 fL (9.4-12.4); Monocytes # 0.8 K/mcL (0.0-1.3); Monocytes % 9.4 %; Neutrophils # 3.3 K/mcL (1.6-8.9); Platelet Count 156 K/mcL (140-400); Red Blood Count 3.79 M/mcL (4.19-5.50); Red Cell Distribution Width 14.4 % (11.5-14.5); Segmented Neutrophils % 40.8 %
[2017-10-07 07:10] LABS: BUN/Creatinine Ratio 26 (6-26); Blood Urea Nitrogen 32 mg/dL (8-23); Calcium 8.2 mg/dL (8.6-10.3); Carbon Dioxide 22 mEq/L (23-29); Chloride 110 mEq/L (98-107); Glucose 93 mg/dL (70-105); Osmolality,Calculated 293 (280-300); Potassium 3.6 mEq/L (3.5-5.1); Sodium 138 mEq/L (136-145); eGFR For African Americans > 60 (> 60); eGFR For Non-African Americans 60 (> 60)
[2017-10-07] MEDS: Acetaminophen 325 MG TABLET PO PRN (09:03)
[2017-10-07] MEDS: Insulin LISPRO 300 UNITS/3 ML VIAL SQ SCH ×2 (09:03→12:22)
[2017-10-07] MEDS: traMADol 50 MG TABLET PO PRN (09:03)
--- NOTE | 2017-10-07 09:38 | Electrophysiology ProgressNote ---
Date of Encounter: 10/07/17 Time of Encounter: 09:35 Assessment and Plan (1) AV block, 2nd degree Current Visit: Yes Status: Acute AV block likely secondary to vagal stimulation or sleep apnea based on finding of sinus slowing prior to and during AV block, all occurrences while pt is sleeping. Longest pause in past 24 hours 5.7 seconds yesterday at 1403 during sleep. Multiple other pauses >2.5 seconds during sleep. TTE pending to evaluate structure and function. Recommend outpt sleep study. No documented desaturations, but will attempt to investigate further on his continuous pulse ox monitoring. Also recommend 2 week event monitor at d/c. Will order. No indication for PPM at this time. Will await echo results prior to signing off. Will also need outpt follow-up in 3-4 weeks after event monitor has been read. Discussion w patient/family: The assessment and plan as outlined above was discussed with the patient and/or family members who expressed understanding and agreement. All questions were answered. Thank you for involving us in the care of your patient. Please call with any questions. I will discuss all the above with Dr. Gurvinder Perez and make changes as necessary. Subjective Principal diagnosis: 2nd degree AV block Interval history: Telemetry reviewed--longest pause 5.7 seconds yesterday at 1403 at which time pt was sleeping, asymptomatic. Multiple other pauses >2.5 seconds. All pauses appear to be when pt is sleeping. No documented O2 desaturations. TTE being done currently at bedside. Pt denies chest pain, dizziness, syncope or dyspnea. Objective Vital Signs, Last 4 Hours Temp Pulse Resp BP Pulse Ox 10/07/17 09:05 72 10/07/17 07:26 98.3 F 78 18 149/83 99 Vital Signs Temp Pulse Resp BP Pulse Ox 10/07/17 09:05 72 10/07/17 07:26 98.3 F 78 18 149/83 99 10/07/17 05:16 97.6 F 83 18 128/80 94 10/07/17 03:30 77 10/06/17 23:55 98.5 F 76 18 109/63 95 10/06/17 23:09 77 10/06/17 20:00 90 10/06/17 19:36 98.3 F 89 18 108/63 98 10/06/17 15:30 97.9 F 86 18 108/63 97 10/06/17 14:18 95 10/06/17 11:57 98.2 F 90 18 112/64 96 Intake and Output 10/06/17 10/07/17 10/07/17 22:59 07:59 15:59 Intake Total Output Total Balance Intake: IV Fluids 0.9 % Sodium Chloride 1,000 ML @ 150 mls/hr IVC .Q6H40M [facility] Rx #:[id number] Oral Output: Urine Other: Meal Percent of Meal Consumed # Voids # Bowel Movements Weight Blood Glucose* Patient Weight 10/08/17 00:59 Weight 85.4 kg General: Conversant, No Apparent Distress HEENT: Atraumatic, Normocephaly, Mucus Membranes Moist Neck: No JVD, Normal carotid pulses Cardiac: Reg Rate and Rhythm, Normal S1 and S2, No Murmur Lungs: Normal Breath Sounds, No Wheeze, Rales, Rhonchi Neuro: Alert and responsive, No focal deficits noted Abdomen: Soft, Non-Tender Skin: No rashes noted on visualized skin Musculoskeletal: No Chest Wall Tenderness Extremities: No Clubbing, No Cyanosis, No Edema, Normal Pulses Results 10/07/17 06:06 10/07/17 06:06 Lab Results 10/07/17 10/07/17 10/07/17 06:06 06:06 06:06 WBC 8.1 Hgb 10.5 L Hct 31.3 L Plt Count 156 Sodium 138 Potassium 3.6 Chloride 110 H Carbon Dioxide 22 L BUN 32 H Creatinine 1.21 Glucose 93 Calcium 8.2 L Magnesium 1.2 L Short CBC 10/07/17 Range/Units 06:06 WBC 8.1 (4.3-11.1) K/mcL Hgb 10.5 L (12.9-16.9) g/dL Hct 31.3 L (37.5-50.1) % Plt Count 156 (140-400) K/mcL Neutrophils # 3.3 (1.6-8.9) K/mcL BMP 10/07/17 Range/Units 06:06 Sodium 138 (136-145) mEq/L Potassium 3.6 (3.5-5.1) mEq/L Chloride 110 H (98-107) mEq/L Carbon Dioxide 22 L (23-29) mEq/L BUN 32 H (8-23) mg/dL Creatinine 1.21 (0.70-1.30) mg/dL Glucose 93 (70-105) mg/dL Calcium 8.2 L (8.6-10.3) mg/dL Active Medications Acetaminophen (Tylenol) 650 mg PO Q6HR PRN PRN Reason: Mild Pain/Fever Stop: 04/05/18 21:04 Last Admin: 10/07/17 09:03 Dose: 650 mg Amitriptyline HCl (Elavil) 75 mg PO HS [facility] Stop: 04/06/18 21:01 Last Admin: 10/06/17 21:42 Dose: 75 mg Clopidogrel Bisulfate (Plavix) 75 mg PO DAILY [facility] Stop: 04/06/18 09:01 Last Admin: 10/07/17 08:58 Dose: 75 mg Dextrose/Water (Dextrose 50% (Syg)) 25 ml IVP AD PRN PRN Reason: Hypoglycemia Stop: 04/05/18 21:06 Glucagon (Glucagen) 1 mg IM ONCE PRN PRN Reason: Hypoglycemia Stop: 04/05/18 21:06 Glucose (Gluctose) 15 gm PO ONCE PRN PRN Reason: Hypoglycemia Stop: 04/05/18 21:06 Glucose (Gluctose) 30 gm PO ONCE PRN PRN Reason: Hypoglycemia Stop: 04/05/18 21:06 Heparin Sodium (Porcine) (Heparin) 5,000 unit SQ Q12HCO [facility] Stop: 04/06/18 06:01 Last Admin: 10/07/17 06:19 Dose: 5,000 unit Sodium Chloride (0.9 % Sodium Chloride) 1,000 mls @ 150 mls/hr IVC .Q6H40M [facility] Stop: 04/05/18 20:46 Last Admin: 10/07/17 06:20 Dose: 150 mls/hr Dextrose (Dextrose 5%) 1,000 mls @ 100 mls/hr IVC .Q10H PRN PRN Reason: HYPOGLYCEMIA Stop: 04/05/18 21:06 Insulin Human Lispro (Humalog) 0 units SQ [facility] PRN Reason: Protocol Stop: 04/06/18 21:01 Last Admin: 10/06/17 21:43 Dose: Not Given Insulin Human Lispro (Humalog) 0 units SQ TIDAC [facility] PRN Reason: Protocol Stop: 04/06/18 07:31 Last Admin: 03/10/18 17:08 Dose: Not Given Melatonin (Melatonin) 3 mg PO HS PRN PRN Reason: Insomnia Stop: 04/06/18 02:55 Last Admin: 10/06/17 21:42 Dose: 3 mg Naloxone HCl (Narcan) 0.4 mg IVP Q2MIN PRN PRN Reason: SEE COMMENTS Stop: 04/05/18 21:04 Omeprazole (Prilosec) 20 mg PO 0630 [facility] PRN Reason: Protocol Stop: 04/06/18 06:31 Last Admin: 10/07/17 06:20 Dose: 20 mg Ondansetron HCl (Zofran) 4 mg IVP Q8HR PRN; Protocol PRN Reason: Nausea And Vomiting Stop: 04/05/18 21:16 Pentoxifylline (Trental) 400 mg PO BID [facility] Stop: 04/06/18 09:01 Last Admin: 10/07/17 08:58 Dose: 400 mg Rosuvastatin Calcium (Crestor) 40 mg PO HS [facility] Stop: 04/06/18 21:01 Last Admin: 10/06/17 21:42 Dose: 40 mg Tramadol HCl (Ultram) 50 mg PO QID PRN PRN Reason: Moderate Pain Stop: 04/05/18 21:07 Last Admin: 10/07/17 09:03 Dose: 50 mg - Imaging and Cardiology Echo: pending - EKG Interpretation EKG results cardiology: other (24 hr tele AVG HR 87, longest pause 5.7 seconds during nocturnal hours) Consult Discharge Plan - Plan Additional Instructions: 1. Please follow up your primary care physician, Dr. Stewart on 10/11/17 at 11 AM. 2. If at any time you experience any worsening or concerning symptoms such as fever, headache, nausea, vomiting, chest pain, shortness of breath, abdominal pain, diarrhea or any other concerning symptoms return to the nearest emergency department for further evaluation and treatment. Referrals: Demetrius Stewart MD [Primary Care Provider] - 10/11/17 11:30 am
[2017-10-07 11:17] VITALS: BP 122/72
--- NOTE | 2017-10-07 13:34 | Discharge Summary ---
<Mir Joiner - Last Filed: 10/07/17 15:05> - NOTES TO OUTPATIENT PROVIDER Notes to Outpatient Provider: Patient will be discharged with a cardiac holter monitor which will need to be worn for 2 weeks. This will need to be reviewed by Dr. Perez's office. At the end of the 2 weeks. Orders not resulted at time of discharge: Pending orders 10/06/17 10:52 EKG [ECG 12 lead ECG] [ECG] Stat 10/07/17 09:47 ECG event monitor 2 weeks [ECG] Routine Date of Encounter: 10/07/17 Time of Encounter: 13:30 - Discharge Diagnosis (1) Gastroenteritis Priority: Primary Status: Resolved (2) Acute renal failure Priority: Primary Status: Resolved Qualifiers: Acute renal failure type: unspecified Qualified Code(s): N17.9 - Acute kidney failure, unspecified (3) AV block, 2nd degree Priority: Primary Status: Acute (4) DVT prophylaxis Priority: Secondary Status: Acute Hospital course: Mr. Ramirez is a 67 year old male originally admitted for LUCY secondary to gastroenteritis. The patient was successfully treated for his LUCY with aggressive fluid rehydration his creatinine today is within normal limits at 1.21. He has no complaints at this time. Patient did have a total of 3 episodes of what appears to be a second-degree type II AV block that have all occurred while he is sleeping now been 6 seconds or less. These abnormal rhythms began just prior to patient being discharged for his prior complaint. Cardiology was consult did and Dr. Perez requested the patient be observed for told 24 hours on telemetry and ordered an echocardiogram. Per cardiology the abnormal rhythm appeared to be a second-degree AV block which they attributed to vagal stimulation or sleep apnea. Events happened while the patient was asleep. The longest pause of patient experienced in the past 24 hours was 5.7 seconds. It is recommended the patient have an outpatient sleep study performed. No indications for ppm at this time. The patient will be discharged with a prescription for an event monitor and which she will wear that for 2 weeks. The patient will also require follow-up with cardiology 3-4 weeks after he has been wearing an event monitor for 2 weeks. Throughout the patient's stay he never had any complaints of chest pain or shortness of breath. She is essentially asymptomatic upon rehydration with aggressive IV fluids. His kidney function has also returned normal. Discharge discussed with: patient Time spent discussing smoking cessation with patient: 3 to 10 minutes - Time Spent with Patient Total time spent providing and/or coordinating discharge services: - Discharge Medications Home Medications: Amitriptyline [Elavil] 75 mg PO HS 05/12/15 [History] Clopidogrel [Plavix] 75 mg PO DAILY 05/12/15 [History] Cyanocobalamin (Vitamin B-12) [Vitamin B12] 1,000 mcg PO DAILY 05/12/15 [History ] Hydrochlorothiazide 25 mg PO DAILY 05/12/15 [History] Lisinopril [Zestril] 40 mg PO DAILY 05/12/15 [History] Omeprazole [PriLOSEC] 20 mg PO DAILY 05/12/15 [History] Rosuvastatin [Crestor] 40 mg PO HS 05/12/15 [History] Pentoxifylline [TRENtal] 400 mg PO BID #0 06/26/15 [History] Metformin HCl [Glucophage] 1,000 mg PO BID #0 08/06/15 [Rx] Tramadol HCl [Ultram] 50 mg PO QID PRN 10/04/17 [History] Tizanidine HCl 4 mg PO TID PRN 10/05/17 [History] Allergies/Adverse Reactions: 3 Allergy/AdvReac Type Severity Reaction Status Date / Time No Known Allergies Allergy Verified 10/04/17 16:11 Date of admission: 10/04/17 21:03 Primary care physician: Demetrius Stewart MD Consults: 10/06/17 10:51 Consult to Cardiology [CONS] Routine Comment: Consulting Provider: Cardiology Geeta Reason for Consult: 4 Seconds complete heart block Call Completed: Yes 10/07/17 12:30 Consult to Electrophysiology (EP) [CONS] Routine Consulting Provider: Electrophysiology Geeta Reason for Consult: AV block Call Completed: Yes Discharging clinician: Jeff Robertson Anticipated date of discharge: 10/07/17 - Constitutional Vitals: Temp Pulse Resp BP Pulse Ox 98.5 F 82 18 122/72 99 10/07/17 11:13 10/07/17 11:13 10/07/17 11:13 10/07/17 11:13 10/07/17 11:13 General appearance: Present: cooperative, mild distress, A&O X 3, pleasant, answers questions appropriately - Head Head exam: Present: atraumatic, normal inspection, normocephalic - Eye Eye exam: Present: normal appearance, PERRL - Neck Neck exam general surgery: Present: normal inspection - Cardiovascular Cardiovascular exam: Present: RRR, +S1, +S2 - GI/Abdominal GI/Abdominal exam: Present: normal bowel sounds, soft, no peritoneal signs. Absent: tenderness - Extremities Exam Extremities exam: Present: normal inspection. Absent: pedal edema, tenderness, warm - Back Exam Back exam: Present: normal inspection - Neurological Exam Neurological exam: Present: alert, oriented X3, no focal deficits - Psychiatric Psychiatric exam: Present: normal affect, normal mood - Skin Skin exam: Present: intact, normal color, warm - Patient Status Disposition: Home, Self-Care Condition: Good Functional capacity at discharge: independent ambulation Overall status at discharge: patient is back to baseline - Discharge Instructions Instructions: Acute Kidney Injury (DC), Gastroenteritis (DC), Heart Block (DC) Follow Up With: Demetrius Stewart MD [Primary Care Provider] - 10/11/17 11:30 am Additional Instructions: 1. Please follow up your primary care physician, Dr. Stewart on 10/11/17 at 11 AM. 2. He will be given a prescription for an event monitor which he will wear for the next 2 weeks to monitor your cardiac rhythm. He will need follow-up with the burner operator in 3-4 weeks to review the results of the director shopper marketing. 3. If at any time you experience any worsening or concerning symptoms such as fever, headache, nausea, vomiting, chest pain, shortness of breath, abdominal pain, diarrhea or any other concerning symptoms return to the nearest emergency department for further evaluation and treatment. - Diet and Activity Activity: increase activity as tolerated Diet: advance to your usual diet <Jeff Robertson - Last Filed: 10/07/17 18:39> Orders not resulted at time of discharge: Pending orders 10/06/17 10:52 EKG [ECG 12 lead ECG] [ECG] Stat 10/07/17 09:47 ECG event monitor 2 weeks [ECG] Routine Date of Encounter: 10/07/17 Hospital course: Mr. Ramirez is a 67 year old male - Time Spent with Patient Total time spent providing and/or coordinating discharge services: Date of admission: 10/04/17 21:03 Primary care physician: Demetrius Stewart MD Consults: 10/06/17 10:51 Consult to Cardiology [CONS] Routine Comment: Consulting Provider: Cardiology Campbell Reason for Consult: 4 Seconds complete heart block Call Completed: Yes 10/07/17 12:30 Consult to Electrophysiology (EP) [CONS] Routine Consulting Provider: Electrophysiology Campbell Reason for Consult: AV block Call Completed: Yes - Constitutional Vitals: Temp Pulse Resp BP Pulse Ox 98.5 F 82 18 122/72 99 10/07/17 11:13 10/07/17 11:13 10/07/17 11:13 10/07/17 11:13 10/07/17 11:13 - Attending Attestation I examined this patient and my medical decision-making was reviewed with the Resident Physician. I agree with the documented findings, disposition and treatment plan as described except to the extent set forth below.
--- NOTE | 2017-10-08 19:24 | Electrocardiograph Report ---
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
== END 2017-10-07 15:20 | disposition home or self-care (01) | DRG 391 ==
LOC: 2NNU
PROVIDERS: ADMIT Internal Medicine; ATTEND Internal Medicine